=== PATIENT | male | born 2000 | race Caucasian/White ===

== ENCOUNTER 2024-08-30 14:57 | Emergency (ER) | payer MEDICAID ==
[~2024-08-30] VITALS: Ht 180.3 cm; Wt 97.0 kg
[2024-08-30 15:02] VITALS: O2SAT 100
[2024-08-30] MEDS: ACETAMINOPHEN 325MG TABLET PO STA (15:32)
[2024-08-30] MEDS: LORAZEPAM 2MG/ML UD SYRINGE IM NR (15:54)
[2024-08-30 15:56] LABS: BASOPHILS % 0.3 % (0.0-2.0); EOSINOPHILS % 0.6 % (0.0-5.0); HEMATOCRIT. 46.4 % (42.0-52.0); HEMOGLOBIN. 15.5 g/dL (14.0-18.0); LYMPHOCYTES % 25.1 % (20.0-50.0); MEAN CORPUSCULAR HGB CONC 33.5 g/dL (31.0-37.0); MEAN CORPUSCULAR VOLUME 80.5 fL (80.0-94.0); MEAN PLATELET VOLUME 9.5 fl (7.4-10.4); MONOCYTES % 4.8 % (2.0-8.0); NEUTROPHILS % 69.2 % (40.0-76.0); PLATELET 302 x1000/uL (130-400); RED BLOOD CELL COUNT 5.77 mill/uL (4.7-6.1); RED CELL DISTRIBUTION WIDTH 13.9 % (11.6-14.6); WHITE BLOOD COUNT 10.4 x1000/uL (4.5-11.0)
[2024-08-30 15:58] LABS: CHLORIDE 109 mEq/L (98-107); POTASSIUM 3.4 mEq/L (3.5-5.1); SODIUM 142 mEq/L (136-145)
[2024-08-30 15:59] LABS: CARBON DIOXIDE 23 mEq/L (21-32)
[2024-08-30 16:00] LABS: CALCIUM 10.5 mg/dL (8.7-10.4)
[2024-08-30 16:04] LABS: GLUCOSE 151 mg/dL (70-105)
[2024-08-30 16:05] LABS: ETHANOL BLOOD < 10 mg/dL (<10); UREA NITROGEN BLOOD 16 mg/dL (9-23)
[2024-08-30 16:22] LABS: TROPONIN I HIGH SENSITIVITY < 4 ng/L (3.0-53)
[2024-08-30 16:49] VITALS: BP 115/79; PULSE 99; RESP 20; TEMP 36.9; O2SAT 100
== END 2024-08-30 16:52 | disposition home or self-care (01) ==
LOC: ER 14:57
DX: F41.0 Panic disorder [episodic paroxysmal anxiety] (principal); F41.9 Anxiety disorder, unspecified; Z79.899 Other long term (current) drug therapy
CPT/HCPCS: 80048; 80320; 82962; 85025; 84484; 36415; 71045; 93005; 96372; 99285; J2060; G0480

== ENCOUNTER 2024-12-15 12:36 | Emergency (ER) | payer MEDICAID ==
[~2024-12-15] VITALS: Ht 180.3 cm; Wt 95.0 kg
[2024-12-15 12:48] VITALS: O2SAT 100
[2024-12-15 13:30] LABS: BASOPHILS % 0.4 % (0.0-2.0); EOSINOPHILS % 2.5 % (0.0-5.0); HEMATOCRIT. 44.1 % (42.0-52.0); HEMOGLOBIN. 14.7 g/dL (14.0-18.0); LYMPHOCYTES % 28.6 % (20.0-50.0); MEAN PLATELET VOLUME 9.0 fl (7.4-10.4); MONOCYTES % 5.3 % (2.0-8.0); NEUTROPHILS % 63.2 % (40.0-76.0); PLATELET 269 x1000/uL (130-400); RED BLOOD CELL COUNT 5.42 mill/uL (4.7-6.1); RED CELL DISTRIBUTION WIDTH 13.3 % (11.6-14.6)
[2024-12-15 13:37] LABS: CLARITY URINE CLEAR (CLEAR); COLOR URINE YELLOW (YELLOW); GLUCOSE URINE NEGATIVE (NEGATIVE); KETONES URINE TRACE (NEGATIVE); LEUKOCYTE ESTERASE URINE NEGATIVE (NEGATIVE); NITRITE URINE NEGATIVE (NEGATIVE); OCCULT BLOOD URINE NEGATIVE (NEGATIVE); PH URINE 7.5 (4.5-8.0); PROTEIN URINE TRACE (NEGATIVE); SPECIFIC GRAVITY URINE 1.028 (1.005-1.030); UROBILINOGEN URINE 1.0 E.U./dL (0.2-1.0)
[2024-12-15 13:43] LABS: CREATININE 1.1 mg/dL (0.6-1.3); UREA NITROGEN BLOOD 21 mg/dL (9-23)
[2024-12-15 13:44] LABS: ETHANOL BLOOD < 10 mg/dL (<10)
[2024-12-15 13:45] LABS: ASPARTATE AMINOTRANSFERASE 16 IU/L (<34); BILIRUBIN DIRECT 0.3 mg/dL (<=3.0)
[2024-12-15 13:46] LABS: BILIRUBIN TOTAL 1.1 mg/dL (0.1-1.0); PROTEIN TOTAL 7.8 g/dL (6.0-8.3)
[2024-12-15 14:08] LABS: *AMPHETAMINES SCREEN URINE NEGATIVE (NEGATIVE); *BARBITURATES SCREEN URINE NEGATIVE (NEGATIVE); *BENZODIAZEPINES SCREEN URINE NEGATIVE (NEGATIVE)
[2024-12-15 14:09] LABS: *COCAINE SCREEN URINE NEGATIVE (NEGATIVE); CANNABINOID URINE SCREEN NEGATIVE (NEGATIVE); ECSTASY MDMA SCREEN URINE NEGATIVE (NEGATIVE); METHADONE URINE SCREEN NEGATIVE (NEGATIVE); OPIATES URINE SCREEN NEGATIVE (NEGATIVE); PHENCYCLIDINE URINE SCREEN NEGATIVE (NEGATIVE)
[2024-12-15 14:43] LABS: MUCUS URINE 2+ /lpf (NONE/TRACE)
[2024-12-15 14:44] LABS: RBC URINE NONE SEEN /hpf (0-2)
[2024-12-15 14:45] LABS: BACTERIA URINE TRACE; SQUAMOUS EPITHELIAL CELL URINE RARE /lpf (RARE/1+); WBC URINE 0-2 /hpf (0-2)
[2024-12-15] MEDS ORDERED: MECL-299 MT (14:45)
[2024-12-15] MEDS ORDERED: FAMO20TA8 MT (14:45)
[2024-12-15] MEDS ORDERED: ACET-2708 MT (14:45)
[2024-12-15 14:58] VITALS: BP 149/84; PULSE 99; RESP 20; TEMP 36.9; O2SAT 100
== END 2024-12-15 14:59 | disposition home or self-care (01) ==
LOC: ER 12:36
DX: R10.13 Epigastric pain (principal); R42 Dizziness and giddiness; F41.9 Anxiety disorder, unspecified; G40.909 Epilepsy, unspecified, not intractable, without status epilepticus
CPT/HCPCS: 36415; 80048; 80076; 80305; 80320; 81003; 85025; 93005; 99284; G0480